=== PATIENT | male | born 1990 | race Caucasian/White ===

== ENCOUNTER 2017-09-08 01:46 | Emergency (ER) | payer OTHER ==
[~2017-09-08] VITALS: Ht 175.3 cm; Wt 92.3 kg
[~2017-09-08 01:46] MED LIST: ATOR10TA84 PO; CLOZ100T31 PO; HALO100V4 IM; LITH300C3 PO; LURA80 PO; METO25 PO
[2017-09-08] MEDS ORDERED: IBUPROFEN 600 MG TABLET PO ONE (04:45)
[2017-09-08 05:43] VITALS: BP 133/72
== END 2017-09-08 05:45 | disposition home or self-care (01) ==
LOC: EMS 01:47
DX: F41.9 Anxiety disorder, unspecified (principal); F20.0 Paranoid schizophrenia; M79.1 Myalgia; F31.9 Bipolar disorder, unspecified; F12.90 Cannabis use, unspecified, uncomplicated; F17.210 Nicotine dependence, cigarettes, uncomplicated; Z59.0 Homelessness; Z91.013 Allergy to seafood; Z91.018 Allergy to other foods; Z88.8 Allergy status to other drugs, medicaments and biological substances
CPT/HCPCS: 99284; 99406

== ENCOUNTER 2017-09-13 03:21 | Inpatient (IN) | payer MEDICAID, OTHER ==
[~2017-09-13] VITALS: Ht 170.2 cm; Wt 78.0 kg
[2017-09-13 04:43] LABS: BASOPHILS % (AUTO) 0.4 % (0.0-2.0); EOSINOPHILS % (AUTO) 0.1 % (1.0-6.0); HEMATOCRIT 42.5 % (41-53); HEMOGLOBIN 14.6 g/dL (13.5-17.5); LYMPHOCYTES # (AUTO) 2.8 K/uL (1.0-4.8); LYMPHOCYTES % (AUTO) 27.5 % (22.0-44.0); MEAN CORPUSCULAR HEMOGLOBIN 28.8 pg (26.0-34.0); MEAN CORPUSCULAR HGB CONC 34.2 G/dL (31.0-37.0); MEAN CORPUSCULAR VOLUME 84 fL (80-100); MONOCYTES % (AUTO) 9.5 % (2.0-9.0); NEUTROPHILS # (AUTO) 6.4 K/uL (1.8-7.7); NEUTROPHILS % (AUTO) 62.5 % (40.0-70.0); PLATELET COUNT (AUTO) 270 K/uL (150-450); RED BLOOD CELL COUNT(AUTO) 5.06 MIL/uL (4.50-5.90); RED CELL DISTRIBUTION WIDTH 13.8 % (11.5-14.5)
[2017-09-13 04:54] LABS: ANION GAP 9 mmol/L (8-16); CALCIUM, TOTAL 8.9 mg/dL (8.8-10.5); CARBON DIOXIDE 27 mmol/L (22-29); CHLORIDE 105 mmol/L (98-107); CREATININE 0.94 mg/dL (0.60-1.30); GLOMERULAR FILTR. RATE CALC > 60 mL/min (>60); GLUCOSE,RANDOM 89 mg/dL (70-110); POTASSIUM 3.6 mmol/L (3.5-5.1); SODIUM SERUM 141 mmol/L (136-145); UREA NITROGEN, BLOOD 12 mg/dL (7-18)
[2017-09-13 05:00] LABS: ALANINE AMINOTRANSFERASE 31 U/L (12-78); ALBUMIN 3.8 g/dL (3.4-5.0); ALKALINE PHOSPHATASE 92 U/L (46-116); ASPARTATE AMINOTRANSFERASE 21 U/L (15-37); BILIRUBIN,TOTAL 0.3 mg/dL (0.1-1.0); TOTAL PROTEIN, SERUM 6.6 g/dL (6.4-8.2)
[2017-09-13 08:10] VITALS: BP 109/64
[2017-09-13 08:15] VITALS: BP 109/64
[2017-09-13 16:14] VITALS: BP 115/79
[2017-09-13] MEDS: HALOPERIDOL 5 MG TABLET PO PRN (17:00)
[2017-09-13] MEDS: LITHIUM CARBONATE 300 MG CAPSULE PO SCH (17:00)
[2017-09-13] MEDS: LORazepam 2 MG TABLET PO PRN (17:00)
[2017-09-13] MEDS: MIRTAZAPINE 15 MG TABLET PO SCH (20:39)
[2017-09-14 01:57] VITALS: BP 122/79
[2017-09-14] MEDS: LORazepam 2 MG TABLET PO PRN ×2 (08:13→16:52)
[2017-09-14] MEDS: LITHIUM CARBONATE 300 MG CAPSULE PO SCH ×2 (08:13→16:52)
[2017-09-14] MEDS: CloZAPine 25 MG TABLET PO SCH ×3 (08:14→16:52)
[2017-09-14] MEDS: MIRTAZAPINE 15 MG TABLET PO SCH (20:25)
[2017-09-15] MEDS: CloZAPine 25 MG TABLET PO SCH ×2 (08:12→16:56)
[2017-09-15] MEDS: LITHIUM CARBONATE 300 MG CAPSULE PO SCH ×2 (08:12→16:56)
[2017-09-15] MEDS: LORazepam 2 MG TABLET PO PRN ×2 (09:26→16:56)
[2017-09-15 10:11] VITALS: BP 129/76
[2017-09-15 16:05] VITALS: BP 133/65
[2017-09-15] MEDS ORDERED: ACETAMINOPHEN 325 MG TABLET PO PRN (17:15)
[2017-09-15] MEDS: ZOLPIDEM TARTRATE 10 MG TABLET PO PRN (20:49)
[2017-09-15] MEDS: MIRTAZAPINE 15 MG TABLET PO SCH (20:49)
[2017-09-16 01:54] VITALS: BP 122/69
[2017-09-16 08:10] VITALS: BP 128/65
[2017-09-16] MEDS: LITHIUM CARBONATE 300 MG CAPSULE PO SCH ×2 (08:35→16:00)
[2017-09-16] MEDS: LORazepam 2 MG TABLET PO PRN ×2 (08:36→16:57)
[2017-09-16] MEDS ORDERED: CloZAPine 25 MG TABLET PO ONE (09:00)
[2017-09-16] MEDS: ARIPiprazole 15 MG TABLET PO SCH (10:39)
[2017-09-16] MEDS: IBUPROFEN 600 MG TABLET PO PRN (16:02)
[2017-09-16 16:05] VITALS: BP 116/68
[2017-09-16] MEDS: HALOPERIDOL 5 MG TABLET PO PRN (16:57)
[2017-09-16] MEDS: MIRTAZAPINE 15 MG TABLET PO SCH (20:31)
[2017-09-16] MEDS: ZOLPIDEM TARTRATE 10 MG TABLET PO PRN (20:31)
[2017-09-16] MEDS ORDERED: CloZAPine 100 MG TABLET PO ONE (21:00)
[2017-09-17 07:01] VITALS: BP 134/91
[2017-09-17 08:13] VITALS: BP 114/68
[2017-09-17] MEDS: LITHIUM CARBONATE 300 MG CAPSULE PO SCH ×2 (08:14→16:37)
[2017-09-17] MEDS: IBUPROFEN 600 MG TABLET PO PRN (08:14)
[2017-09-17] MEDS: ARIPiprazole 15 MG TABLET PO SCH (08:14)
[2017-09-17] MEDS ORDERED: CloZAPine 25 MG TABLET PO ONE (09:00)
[2017-09-17 09:13] VITALS: BP 113/63
[2017-09-17] MEDS: LORazepam 2 MG TABLET PO PRN ×2 (13:03→17:10)
[2017-09-17 16:07] VITALS: BP 118/66
[2017-09-17] MEDS: ZOLPIDEM TARTRATE 10 MG TABLET PO PRN (20:40)
[2017-09-17] MEDS: MIRTAZAPINE 15 MG TABLET PO SCH (20:40)
[2017-09-17] MEDS ORDERED: CloZAPine 100 MG TABLET PO ONE (21:00)
[2017-09-18 06:21] VITALS: BP 120/72
[2017-09-18 08:06] VITALS: BP 136/89
[2017-09-18] MEDS: ARIPiprazole 15 MG TABLET PO SCH (08:25)
[2017-09-18] MEDS: LORazepam 2 MG TABLET PO PRN ×2 (08:26→16:16)
[2017-09-18] MEDS: LITHIUM CARBONATE 300 MG CAPSULE PO SCH ×2 (08:26→16:16)
[2017-09-18] MEDS ORDERED: CloZAPine 25 MG TABLET PO ONE (09:00)
[2017-09-18 16:05] VITALS: BP 111/63
[2017-09-18] MEDS: ZOLPIDEM TARTRATE 10 MG TABLET PO PRN (20:26)
[2017-09-18] MEDS: MIRTAZAPINE 15 MG TABLET PO SCH (20:26)
[2017-09-18] MEDS ORDERED: CloZAPine 100 MG TABLET PO ONE (21:00)
[2017-09-19 06:09] VITALS: BP 119/78
[2017-09-19] MEDS: IBUPROFEN 600 MG TABLET PO PRN ×2 (06:35→16:13)
[2017-09-19] MEDS: LITHIUM CARBONATE 300 MG CAPSULE PO SCH ×2 (08:31→16:13)
[2017-09-19] MEDS: LORazepam 2 MG TABLET PO PRN ×2 (08:32→16:13)
[2017-09-19] MEDS: ARIPiprazole 15 MG TABLET PO SCH (08:32)
[2017-09-19 08:34] VITALS: BP 144/73
[2017-09-19] MEDS ORDERED: CloZAPine 100 MG TABLET PO SCH (09:00)
[2017-09-19 16:14] VITALS: BP 116/66
[2017-09-19] MEDS ORDERED: ARIP15TA2 PO (17:03)
[2017-09-19] MEDS ORDERED: LITH300C3 PO (17:03)
[2017-09-19] MEDS ORDERED: MIRT15 PO (17:03)
[2017-09-20] MEDS ORDERED: CloZAPine 100 MG TABLET PO SCH (09:00)
[2017-09-21] MEDS ORDERED: CloZAPine 25 MG TABLET PO ONE (09:00)
[2017-09-21] MEDS ORDERED: CloZAPine 100 MG TABLET PO ONE (21:00)
[2017-09-22] MEDS ORDERED: CloZAPine 25 MG TABLET PO ONE (09:00)
[2017-09-22] MEDS ORDERED: CloZAPine 100 MG TABLET PO ONE (21:00)
[2017-09-23] MEDS ORDERED: CloZAPine 100 MG TABLET PO ONE ×2 (09:00→21:00)
[2017-09-24] MEDS ORDERED: CloZAPine 100 MG TABLET PO ONE ×2 (09:00→21:00)
== END 2017-09-19 17:20 | disposition home or self-care (01) | DRG 750 ==
LOC: EMS 03:23 → B3A 04:45
PROVIDERS: ADMIT Psychiatry & Neurology Child & Adolescent Psychiatry; ATTEND Psychiatry & Neurology Child & Adolescent Psychiatry
DX: F20.0 Paranoid schizophrenia (principal); R45.851 Suicidal ideations; F32.9 Major depressive disorder, single episode, unspecified; F41.9 Anxiety disorder, unspecified; F43.10 Post-traumatic stress disorder, unspecified; F17.210 Nicotine dependence, cigarettes, uncomplicated; F12.90 Cannabis use, unspecified, uncomplicated; Z79.899 Other long term (current) drug therapy; Z88.0 Allergy status to penicillin; Z88.5 Allergy status to narcotic agent; Z91.013 Allergy to seafood; Z88.8 Allergy status to other drugs, medicaments and biological substances; Z91.018 Allergy to other foods
CPT/HCPCS: 99285; G0480

== ENCOUNTER 2017-09-28 02:43 | Emergency (ER) | payer MEDICAID, OTHER ==
[~2017-09-28] VITALS: Ht 162.6 cm; Wt 72.7 kg
[~2017-09-28 02:43] MED LIST changes: +ARIP15TA2 PO; -ATOR10TA84 PO; -CLOZ100T31 PO; -HALO100V4 IM; -LURA80 PO; -METO25 PO; +MIRT15 PO
[2017-09-28 03:10] VITALS: BP 132/78
[2017-09-28] MEDS ORDERED: BACITRACIN 0.9 GM PACKET OINTMENT TP ONE (03:15)
[2017-09-28] MEDS ORDERED: ACETAMINOPHEN 500 MG TABLET PO ONE (03:15)
[2017-09-28] MEDS ORDERED: ARIPiprazole 10 MG TABLET PO ONE (03:15)
== END 2017-09-28 04:18 | disposition home or self-care (01) ==
LOC: EMS 02:44
DX: S90.821A Blister (nonthermal), right foot, initial encounter (principal); S90.822A Blister (nonthermal), left foot, initial encounter; F17.210 Nicotine dependence, cigarettes, uncomplicated; F12.90 Cannabis use, unspecified, uncomplicated; F31.9 Bipolar disorder, unspecified; F41.9 Anxiety disorder, unspecified; F20.9 Schizophrenia, unspecified; F25.9 Schizoaffective disorder, unspecified; Z88.0 Allergy status to penicillin; Z91.013 Allergy to seafood; Z88.8 Allergy status to other drugs, medicaments and biological substances; Z91.018 Allergy to other foods; X58.XXXA Exposure to other specified factors, initial encounter; Y93.89 Activity, other specified; Y92.89 Other specified places as the place of occurrence of the external cause; Y99.8 Other external cause status
CPT/HCPCS: 99284; 99406

== ENCOUNTER 2018-08-04 19:18 | Emergency (ER) | payer OTHER ==
[~2018-08-04] VITALS: Ht 170.2 cm; Wt 108.2 kg
[2018-08-04 21:51] VITALS: BP 141/100
== END 2018-08-04 23:28 | disposition home or self-care (01) ==
LOC: EMS 19:18
DX: S09.90XA Unspecified injury of head, initial encounter (principal); F41.9 Anxiety disorder, unspecified; F31.9 Bipolar disorder, unspecified; F20.9 Schizophrenia, unspecified; F17.210 Nicotine dependence, cigarettes, uncomplicated; F12.90 Cannabis use, unspecified, uncomplicated; Z88.8 Allergy status to other drugs, medicaments and biological substances; Z88.6 Allergy status to analgesic agent; W01.0XXA Fall on same level from slipping, tripping and stumbling without subsequent striking against object, initial encounter; Y93.89 Activity, other specified; Y92.89 Other specified places as the place of occurrence of the external cause; Y99.8 Other external cause status

== ENCOUNTER 2019-04-25 21:19 | Emergency (ER) | payer OTHER ==
[~2019-04-25] VITALS: Ht 170.2 cm; Wt 81.8 kg
[2019-04-25] MEDS ORDERED: DIVA250T45 PO (21:40)
[2019-04-25] MEDS ORDERED: TOPI100T37 PO (21:40)
[2019-04-25] MEDS ORDERED: LURA80 PO (21:40)
[2019-04-25] MEDS ORDERED: DIVA500T52 PO (21:40)
[2019-04-25] MEDS ORDERED: FAMO20 PO (21:41)
[2019-04-25] MEDS ORDERED: TRIH5TAB2 PO (21:41)
[2019-04-25] MEDS ORDERED: TRAZ-220 PO (21:41)
[2019-04-25] MEDS ORDERED: HALO10 PO (21:41)
[2019-04-25] MEDS ORDERED: TRAZ-252 PO (21:41)
[2019-04-25] MEDS ORDERED: HYDR50CA9 PO (21:41)
[2019-04-25] MEDS ORDERED: ALBU8.5H8 IH (21:41)
[2019-04-25] MEDS ORDERED: ATOM40CA9 PO (21:41)
[2019-04-26] MEDS ORDERED: ACETAMINOPHEN 500 MG TABLET PO ONE (00:15)
[2019-04-26 01:36] VITALS: BP 124/61
[2019-04-26] MEDS ORDERED: IBUPROFEN 600 MG TABLET PO ONE (01:45)
== END 2019-04-26 02:31 | disposition home or self-care (01) ==
LOC: EMS 21:19
DX: S02.2XXA Fracture of nasal bones, initial encounter for closed fracture (principal); F41.9 Anxiety disorder, unspecified; F31.9 Bipolar disorder, unspecified; F20.9 Schizophrenia, unspecified; F17.210 Nicotine dependence, cigarettes, uncomplicated; F12.90 Cannabis use, unspecified, uncomplicated; Z88.8 Allergy status to other drugs, medicaments and biological substances; Y04.2XXA Assault by strike against or bumped into by another person, initial encounter; Y93.89 Activity, other specified; Y92.89 Other specified places as the place of occurrence of the external cause; Y99.8 Other external cause status
CPT/HCPCS: 70450; 70486

== ENCOUNTER 2019-09-11 22:19 | Emergency (ER) | payer OTHER ==
[~2019-09-11] VITALS: Ht 175.3 cm; Wt 77.3 kg
[~2019-09-11 22:19] MED LIST changes: +ALBU8.5H8 IH; -ARIP15TA2 PO; +ATOM40CA9 PO; +DIVA250T45 PO; +DIVA500T52 PO; +FAMO20 PO; +HALO10 PO; +HYDR50CA9 PO; -LITH300C3 PO; +LURA80TA2 PO; -MIRT15 PO; +TOPI100T37 PO; +TRAZ-252 PO; +TRAZ-257 PO; +TRIH5TAB2 PO
[2019-09-11] MEDS ORDERED: RISP2 PO (22:50)
[2019-09-11] MEDS ORDERED: OMEG-135 PO (22:50)
[2019-09-11] MEDS ORDERED: ERGO500054 PO (22:50)
[2019-09-11] MEDS ORDERED: PROP10TA73 PO (22:50)
[2019-09-11] MEDS ORDERED: MULT-1203 PO (22:50)
[2019-09-11] MEDS ORDERED: DULO60CA44 PO (22:50)
[2019-09-11 23:30] LABS: BASOPHILS % (AUTO) 0.3 % (0.0-2.0); EOSINOPHILS % (AUTO) 0.6 % (1.0-6.0); HEMATOCRIT 45.3 % (41-53); HEMOGLOBIN 15.2 g/dL (13.5-17.5); LYMPHOCYTES # (AUTO) 2.7 K/uL (1.0-4.8); LYMPHOCYTES % (AUTO) 27.8 % (22.0-44.0); MEAN CORPUSCULAR HEMOGLOBIN 31.2 pg (26.0-34.0); MEAN CORPUSCULAR HGB CONC 33.5 G/dL (31.0-37.0); MEAN CORPUSCULAR VOLUME 93 fL (80-100); MONOCYTES # (AUTO) 0.9 K/uL (0.1-1.0); MONOCYTES % (AUTO) 9.5 % (2.0-9.0); NEUTROPHILS % (AUTO) 61.8 % (40.0-70.0); PLATELET COUNT (AUTO) 182 K/uL (150-450); RED BLOOD CELL COUNT(AUTO) 4.86 MIL/uL (4.50-5.90)
[2019-09-11 23:41] LABS: ANION GAP 8 mmol/L (8-16); CALCIUM, TOTAL 9.1 mg/dL (8.8-10.5); CARBON DIOXIDE 29 mmol/L (22-29); CHLORIDE 106 mmol/L (98-107); GLOMERULAR FILTR. RATE CALC > 60 mL/min (>60); GLUCOSE,RANDOM 100 mg/dL (70-110); SODIUM SERUM 143 mmol/L (136-145); UREA NITROGEN, BLOOD 15 mg/dL (7-18)
[2019-09-11 23:54] LABS: ALANINE AMINOTRANSFERASE 40 U/L (12-78); ALBUMIN 3.9 g/dL (3.4-5.0); ALKALINE PHOSPHATASE 88 U/L (46-116); ASPARTATE AMINOTRANSFERASE 31 U/L (15-37); BILIRUBIN,TOTAL 0.2 mg/dL (0.1-1.0); TOTAL PROTEIN, SERUM 7.3 g/dL (6.4-8.2); VALPROIC ACID 73 mcg/mL (50-100)
[2019-09-12 00:42] VITALS: BP 120/85
== END 2019-09-12 01:18 | disposition home or self-care (01) ==
LOC: EMS 22:21
DX: F69 Unspecified disorder of adult personality and behavior (principal); F17.210 Nicotine dependence, cigarettes, uncomplicated; F41.9 Anxiety disorder, unspecified; F31.9 Bipolar disorder, unspecified; F20.9 Schizophrenia, unspecified; F12.90 Cannabis use, unspecified, uncomplicated; Z88.8 Allergy status to other drugs, medicaments and biological substances
CPT/HCPCS: 36415; 80053; 80164; 85025; 99284; G0480

== ENCOUNTER 2019-12-08 12:20 | Emergency (ER) | payer OTHER ==
[~2019-12-08] VITALS: Ht 175.3 cm; Wt 86.4 kg
[~2019-12-08 12:20] MED LIST changes: -ATOM40CA9 PO; +DIVA-80 PO; +DIVA-85 PO; -DIVA250T45 PO; -DIVA500T52 PO; +DULO60CA44 PO; +ERGO500054 PO; -LURA80TA2 PO; +MULT-1203 PO; +OMEG-135 PO; +PROP10TA73 PO; +RISP2TAB23 PO; -TRAZ-252 PO
[2019-12-08 14:28] LABS: BASOPHILS % (AUTO) 0.2 % (0.0-2.0); EOSINOPHILS % (AUTO) 0.8 % (1.0-6.0); HEMATOCRIT 45.1 % (41-53); HEMOGLOBIN 15.6 g/dL (13.5-17.5); LYMPHOCYTES # (AUTO) 3.5 K/uL (1.0-4.8); LYMPHOCYTES % (AUTO) 41.9 % (22.0-44.0); MEAN CORPUSCULAR HGB CONC 34.6 G/dL (31.0-37.0); MEAN CORPUSCULAR VOLUME 93 fL (80-100); MONOCYTES # (AUTO) 0.7 K/uL (0.1-1.0); MONOCYTES % (AUTO) 8.7 % (2.0-9.0); NEUTROPHILS # (AUTO) 4.1 K/uL (1.8-7.7); NEUTROPHILS % (AUTO) 48.4 % (40.0-70.0); PLATELET COUNT (AUTO) 193 K/uL (150-450); RED BLOOD CELL COUNT(AUTO) 4.87 MIL/uL (4.50-5.90)
[2019-12-08 14:29] LABS: ALANINE AMINOTRANSFERASE 34 U/L (12-78); ALBUMIN 4.1 g/dL (3.4-5.0); ALKALINE PHOSPHATASE 92 U/L (46-116); ANION GAP 7 mmol/L (8-16); ASPARTATE AMINOTRANSFERASE 21 U/L (15-37); BILIRUBIN,TOTAL 0.3 mg/dL (0.1-1.0); CALCIUM, TOTAL 9.3 mg/dL (8.8-10.5); CARBON DIOXIDE 28 mmol/L (22-29); CHLORIDE 104 mmol/L (98-107); CREATININE 0.98 mg/dL (0.60-1.30); GLOMERULAR FILTR. RATE CALC > 60 mL/min (>60); GLUCOSE,RANDOM 98 mg/dL (70-110); POTASSIUM 4.2 mmol/L (3.5-5.1); SODIUM SERUM 139 mmol/L (136-145); TOTAL PROTEIN, SERUM 7.9 g/dL (6.4-8.2); UREA NITROGEN, BLOOD 16 mg/dL (7-18)
[2019-12-08 14:53] LABS: AMPHET/METH SCREEN,URINE NEGATIVE (NEGATIVE); BARBITURATE SCREEN, URINE NEGATIVE (NEGATIVE); BENZODIAZEPINES SCREEN,URINE NEGATIVE (NEGATIVE); CANNABINOID SCREEN,URINE NEGATIVE (NEGATIVE); COCAINE SCREEN,URINE NEGATIVE (NEGATIVE); METHADONE SCREEN, URINE NEGATIVE (NEGATIVE); OPIATE SCREEN,URINE NEGATIVE (NEGATIVE); PHENCYCLIDINE SCREEN,URINE NEGATIVE (NEGATIVE)
[2019-12-08 16:20] VITALS: BP 125/65
== END 2019-12-08 16:20 ==
LOC: EMS 12:23
DX: F20.0 Paranoid schizophrenia (principal); F17.210 Nicotine dependence, cigarettes, uncomplicated; F12.90 Cannabis use, unspecified, uncomplicated; F31.9 Bipolar disorder, unspecified; Z88.8 Allergy status to other drugs, medicaments and biological substances; Z79.899 Other long term (current) drug therapy
CPT/HCPCS: 36415; 80053; 80307; 85025; 99284; 99406; G0480

== ENCOUNTER 2020-01-21 14:06 | Emergency (ER) | payer OTHER ==
[~2020-01-21 14:06] MED LIST changes: +DULO-8 PO; -DULO60CA44 PO
== END 2020-01-21 14:12 | disposition left against medical advice (07) ==
LOC: EMS 14:09
DX: Z00.00 Encounter for general adult medical examination without abnormal findings (principal); Z53.21 Procedure and treatment not carried out due to patient leaving prior to being seen by health care provider